=== PATIENT | male | born 1960 | race Caucasian/White ===

== ENCOUNTER 2024-05-03 13:30 | Emergency (ER) | payer BC, OTHER ==
[2024-05-03 14:47] LABS: Absolute Basophils 0.2 K/uL (0-0.5); Absolute Lymphocytes (CBC) 0.9 K/uL (0.7-4.9); Absolute Monocytes 0.8 K/uL (0.1-1.3); Absolute Neutrophil 13.5 K/uL (1.8-8.0); Basophils % 1.2 % (0-1.3); Eosinophils % 0.1 % (0-4.4); Hematocrit 44.5 % (39.6-49.0); Hemoglobin 15.3 g/dL (13.6-17.9); Lymphocytes % 6.1 % (15.3-44.8); MCHC 34.3 g/dL (32.0-36.0); MCV 87.5 fL (80-100); MPV 9.3 fL (7.6-11.3); Monocytes % 5.2 % (3.3-12.3); Neutrophils % 87.4 % (41.7-73.7); Nucleated Red Blood Cells % 0.1 % (0-0); Platelets 208 thou/uL (152-406); RBC Red Blood Cell Count 5.09 M/uL (4.33-5.43); Red Cell Distribution Width 13.6 % (12.1-15.2)
[2024-05-03] MEDS ORDERED: METOCLOPRAMIDE 10 MG/2mL INJ ONE (14:49)
[2024-05-03] MEDS ORDERED: KETOROLAC 30 MG/ML INJ ONE (14:49)
[2024-05-03] MEDS ORDERED: DIPHENHYDRAMINE 50 MG/ML VIAL ONE (14:49)
[2024-05-03] MEDS ORDERED: NA CHLORIDE 0.9% 500 ML ONE (14:49)
[2024-05-03 14:56] LABS: Anion Gap 11.3 mEq/L (5.0-15.0); Potassium 3.3 mEq/L (3.5-5.1)
--- NOTE | 2024-05-03 14:58 | RAD REPORT ---
EXAMINATION: ONE VIEW CHEST XR CLINICAL INDICATION: Male, 63 years old.,Cough;Dyspnea TECHNIQUE: Frontal chest projection is submitted. Examination is limited by patient positioning and t echnique. COMPARISON: 09/07/2013 FINDINGS: The lungs are well inflated and clear. No pneumothorax or sizable effusion. The heart is normal in s ize. Mediastinal contours are unremarkable. IMPRESSION: No acute intrathoracic abnormalities.
[2024-05-03 15:03] LABS: SARS-CoV-2 Antigen CONTROL BLUE LINE VIS/BG OK; SARS-CoV-2 Antigen Rapid Res Negative (Negative)
--- NOTE | 2024-05-03 15:42 | EDPHYS ---
Physician Documentation [facility] Name: Gabe Mcnamara Age: 63 yrs Sex: Male : 1960 Arrival Date: 05/03/2024 Time: 13:30 Bed DX4 Private MD: ED Physician Hunter Ding HPI: 05/03 13:58 This 63 yrs old Male presents to ER via Ambulatory with complaints of ec2 Headache, Flu Symptoms. 13:58 Patient arrives today for evaluation of upper respiratory symptoms with headache. ec2 Patient reports that he has been experiencing his symptoms ongoing for 2 days. Patient reports some associated headaches, nausea, decreased p.o. intake, myalgias. Reports that he is specifically concerned that he has a spouse that has cancer and is being treated with chemotherapy.. Historical: - Allergies: 13:48 PENICILLINS; tm6 - PMHx: 13:47 None; tm6 - PSHx: 13:47 brain surgery; tm6 - Immunization history:: Client reports receiving the 2nd dose of the Covid vaccine. - Infectious Disease History:: Denies. - Social history:: Smoking status: Patient denies any tobacco usage or history of. ROS: 13:58 Constitutional: as per hpi ec2 Exam: 13:58 Constitutional: GEN: NAD Head: atraumatic Eyes: EOMI Ears: External ears are ec2 normal. CV: regular rate LUNGS: no respiratory distress, no wheezes, no rales, no rhonchi ABD: non-distended SKIN: no evidence of rashes MSK: no evidence of trauma Vital Signs: 13:44 Resp 17; Temp 98.9(O); Weight 106.59 kg; Height 5 ft. 11 in. ; Pain 5/10; tm6 13:44 BP 110 / 77; Pulse 94; Pulse Ox 96% on R/A; MAP 89 mmHg; tm6 13:44 Body Mass Index 32.78 (106.59 kg, 180.34 cm) tm6 13:44 Pain Scale: Adult tm6 MDM: 13:50 Medical Screening Exam initiated ec2 13:58 Data reviewed: vital signs, nurses notes. ED course: Patient arrives today for upper ec2 respiratory symptoms. Examination is remarkable for well-appearing nontoxic individual with otherwise in no acute distress. Will obtain blood work, viral swab, chest x-ray and treat the patient's symptoms. Suspect viral infection. . 15:42 ED course: Swabs, imaging negative, does have leukocytosis. Suspect viral infection. ec2 Will discharge home. Return precautions given.. 05/03 13:50 Order name: Influenza Screen (a \T\ B); Complete Time: 15:13 ec2 05/03 13:50 Order name: SARS RAPID; Complete Time: 15:13 ec2 05/03 13:50 Order name: CBC with Diff ec2 05/03 13:50 Order name: BMP; Complete Time: 15:13 ec2 05/03 15:54 Order name: CBC Smear Scan EDMS 05/03 13:50 Order name: CXR XRAY; Complete Time: 15:13 ec2 05/03 13:50 Order name: IV; Complete Time: 14:35 ec2 Administered Medications: 14:53 Drug: NS 0.9% IV 500 ml 500 ml IV at 1 bolus once; to be given as a bolus over 30 aa5 minutes Volume: 500 ml; Route: IV; Rate: 1 bolus; Site: left forearm; 15:20 Follow up: IV Status: Completed infusion; IV Intake: 500ml aa5 14:53 Drug: metoCLOPramide IVP 10 mg IVP once; over 1 to 2 minutes Route: IVP; Site: left aa5 forearm; 15:00 Follow up: Response: No adverse reaction aa5 14:53 Drug: diphenhydrAMINE IVP 12.5 mg IVP once Route: IVP; Site: left forearm; aa5 15:00 Follow up: Response: No adverse reaction aa5 14:53 Drug: Ketorolac IVP 15 mg IVP once Route: IVP; Site: left forearm; aa5 15:00 Follow up: Response: No adverse reaction aa5 Disposition Summary: 05/03/24 15:42 Discharge Ordered Notes: Location: Home ec2 Condition: Stable ec2 Diagnosis - Viral infection, unspecified ec2 Followup: ec2 - With: Private Physician - When: - Reason: Re-evaluation by your physician Discharge Instructions: - Discharge Summary Sheet ec2 - Viral Illness, Adult ec2 Forms: - Family Work Release ec2 - Medication Reconciliation Form ec2 - Antibiotic Education ec2 - Prescription Opioid Use ec2 - Patient Portal Instructions ec2 - Leadership Thank You Letter ec2 Prescriptions: - Compazine 10 mg Oral Tablet - take 1 tablet ORAL route every 8 hours As needed; 20 tablet; Refills: 0, ec2 Product Selection Permitted Signatures: Dispatcher [employer] Mitra Gandara, RN RN aa5 Hunter Ding MD MD ec2 Keith Stewart RN RN tm6 Corrections: (The following items were deleted from the chart) 13:51 13:51 Influenza Screen (A \T\ B)+BA.LAB.BRZ ordered. EDMS EDMS 13:51 13:51 SARS-COV-2 Antigen Rapid+I.LAB.BRZ ordered. EDMS EDMS 13:51 13:51 CBC+H.LAB.BRZ ordered. EDMS EDMS 13:51 13:51 BASIC METABOLIC PANEL+C.LAB.BRZ ordered. EDMS EDMS
--- NOTE | 2024-05-03 15:42 | ER ---
Nurse's Notes [facility] Name: Gabe Mcnamara Age: 63 yrs Sex: Male : 1960 Arrival Date: 05/03/2024 Time: 13:30 Bed DX4 Private MD: Diagnosis: Viral infection, unspecified Presentation: 05/03 13:45 Chief complaint: Patient states: last night I started to not feel well, I ate a lot of tm6 leila grahams. I woke up with a headache and a fever. Cough and congestion. No n/v/d. Coronavirus screen: Client denies travel out of the [place] in the last 14 days. Ebola Screen: Patient negative for fever greater than or equal to 101.5 degrees Fahrenheit, and additional compatible Ebola Virus Disease symptoms Patient denies exposure to infectious person. Patient denies travel to an Ebola-affected area in the 21 days before illness onset. No symptoms or risks identified at this time. Initial Sepsis Screen: Does the patient meet any 2 criteria? No. Patient's initial sepsis screen is negative. Does the patient have a suspected source of infection? No. Patient's initial sepsis screen is negative. Risk Assessment: Do you want to hurt yourself or someone else? Patient reports no desire to harm self or others. Onset of symptoms was May 02, 2024. 13:45 Method Of Arrival: Ambulatory tm6 13:45 Acuity: RE 4 tm6 Triage Assessment: 13:47 Headache History: Denies prior headaches. General: Appears in no apparent distress. tm6 uncomfortable, Behavior is calm, cooperative. Pain: Complains of pain in headache Pain currently is 5 out of 10 on a pain scale. Quality of pain is described as aching, Pain began this morning Also complains of no other associated symptoms. 13:48 EENT: No signs and/or symptoms were reported regarding the EENT system. Neuro: Level of tm6 Consciousness is awake, alert, obeys commands, Oriented to person, place, time, situation, Reports headache. Cardiovascular: Patient's skin is warm and dry. Respiratory: Reports cough that is Airway is patent Respiratory effort is even, unlabored, Respiratory pattern is regular, symmetrical. GI: Abdomen is round non-distended. : No signs and/or symptoms were reported regarding the genitourinary system. Derm: No signs and/or symptoms reported regarding the dermatologic system. Musculoskeletal: No signs and/or symptoms reported regarding the musculoskeletal system. Historical: - Allergies: 13:48 PENICILLINS; tm6 - PMHx: 13:47 None; tm6 - PSHx: 13:47 brain surgery; tm6 - Immunization history:: Client reports receiving the 2nd dose of the Covid vaccine. - Infectious Disease History:: Denies. - Social history:: Smoking status: Patient denies any tobacco usage or history of. Assessment: 14:35 General: Appears uncomfortable, Behavior is calm, cooperative. Pain: Complains of pain aa5 in head. Neuro: Level of Consciousness is awake, alert, obeys commands, Oriented to person, place, time, situation. Cardiovascular: Patient's skin is warm and dry. Respiratory: Airway is patent Respiratory effort is even, unlabored, Respiratory pattern is regular, symmetrical. GI: No signs and/or symptoms were reported involving the gastrointestinal system. : No signs and/or symptoms were reported regarding the genitourinary system. EENT: No signs and/or symptoms were reported regarding the EENT system. Derm: Skin is pink, warm \T\ dry. Musculoskeletal: Range of motion: intact in all extremities. 14:53 Reassessment: Patient is alert, oriented x 3, equal unlabored respirations, skin aa5 warm/dry/pink. 16:08 Reassessment: Patient is alert, oriented x 3, equal unlabored respirations, skin aa5 warm/dry/pink. Vital Signs: 13:44 Resp 17; Temp 98.9(O); Weight 106.59 kg; Height 5 ft. 11 in. ; Pain 5/10; tm6 13:44 BP 110 / 77; Pulse 94; Pulse Ox 96% on R/A; MAP 89 mmHg; tm6 13:44 Body Mass Index 32.78 (106.59 kg, 180.34 cm) tm6 13:44 Pain Scale: Adult tm6 ED Course: 13:32 Patient arrived in ED. im 13:38 Hunter Ding MD is Attending Physician. ec2 13:44 Arm band placed on right wrist. tm6 13:46 Triage completed. tm6 13:49 Allergy band placed. tm6 14:21 CXR XRAY In Process Unspecified. EDMS 14:35 BMP Sent. cc6 14:35 CBC with Diff Sent. cc6 14:35 SARS RAPID Sent. cc6 14:35 Influenza Screen (a \T\ B) Sent. cc6 14:35 Initial lab(s) drawn, by me, sent to lab. COVID swab sent to lab. Flu and/or RSV swab cc6 sent to lab. Inserted saline lock: 22 gauge in left forearm, using aseptic technique. Blood collected. Flushed with 10 mL NS. 14:57 Mitra Mariscal, RN is Primary Nurse. aa5 16:08 No provider procedures requiring assistance completed. IV discontinued, intact, aa5 bleeding controlled, No redness/swelling at site. Pressure dressing applied. Administered Medications: 14:53 Drug: NS 0.9% IV 500 ml 500 ml IV at 1 bolus once; to be given as a bolus over 30 aa5 minutes Volume: 500 ml; Route: IV; Rate: 1 bolus; Site: left forearm; 15:20 Follow up: IV Status: Completed infusion; IV Intake: 500ml aa5 14:53 Drug: metoCLOPramide IVP 10 mg IVP once; over 1 to 2 minutes Route: IVP; Site: left aa5 forearm; 15:00 Follow up: Response: No adverse reaction aa5 14:53 Drug: diphenhydrAMINE IVP 12.5 mg IVP once Route: IVP; Site: left forearm; aa5 15:00 Follow up: Response: No adverse reaction aa5 14:53 Drug: Ketorolac IVP 15 mg IVP once Route: IVP; Site: left forearm; aa5 15:00 Follow up: Response: No adverse reaction aa5 Intake: 15:20 IV: 500ml; Total: 500ml. aa5 Outcome: 15:42 Discharge ordered by . ec2 16:08 Discharged to home ambulatory, with friend, aa5 16:08 Condition: stable 16:08 Discharge instructions given to patient, Instructed on discharge instructions, follow up and referral plans. medication usage, Demonstrated understanding of instructions, follow-up care, medications, Prescriptions given X 1, 16:10 Patient left the ED. aa5 Signatures: Dispatcher [employer] [facility] Mitra Mariscal, KARIN RN aa5 Lisbeth Powell Edwin, MD MD ec2 Keith Stewart RN RN tm6 Valerie Medellin cc6 Corrections: (The following items were deleted from the chart) 13:47 13:45 Chief complaint: Patient states: last night I started to not feel well, I ate a tm6 lot of leila grahams. I woke up with a headache and a fever. tm6 14:57 14:53 Ketorolac IVP 15 mg IVP in left antecubital aa5 aa5
[2024-05-03 15:54] LABS: Blood Morphology Comment NOT SEEN (NOT SEEN); Platelet Estimate ADEQ; White Blood Cell Scan OK (OK)
[2024-05-03 18:14] VITALS: BP 110/77; TEMP 98.9; O2SAT 96
== END 2024-05-03 16:10 | disposition home or self-care (01) ==
LOC: ER 13:30
DX: B34.9 Viral infection, unspecified (principal); Z11.52 Encounter for screening for COVID-19; Z88.0 Allergy status to penicillin
CPT/HCPCS: 85025; 80048; 36415; 87804 ×2; 71045; 96375; 96374; 99284; 87811; J2765; J1200; J7040